=== PATIENT | male | born 1955 | race Caucasian/White ===

== ENCOUNTER 2022-04-09 08:46 | Emergency (ER) | payer OTHER, SELFPAY ==
[2022-04-09 08:52] VITALS: BP 153/81; PULSE 68; RESP 14; TEMP 36.6; O2SAT 99
--- NOTE | 2022-04-09 09:13 | ED.MALEGU ---
HPI - Male Genitourinary General Chief complaint: Urogenital-Male Stated complaint: blood in urine Time Seen by Provider: 04/09/22 09:10 Source: patient, RN notes reviewed and old records reviewed Mode of arrival: ambulatory Limitations: no limitations History of Present Illness HPI Narrative: 66 year old male who [facility] with complaints of noting blood in his urine at 0300 this morning with some clots noted, patient states that he has some irritation with urination, Patient denies any abdominal pain, no suprapubic pressure or pain or any CVA tenderness, Patient does report history of previous kidney stone which he passed on his own about 4 years ago. Patient states that he did drink some beers last night. He denies any fevers, chills nausea or vomiting or any concerns for STD exposure. MD Complaint: other (Blood in urine) Onset (ago): hour(s) (0300) Associated symptoms: Reports blood in urine Related Data Allergies Allergy/AdvReac Type Severity Reaction Status Date / Time No Known Allergies Allergy Verified 04/09/22 09:04 Review of Systems Review of Systems: CONSTITUTIONAL: Denies fever, chills, or sweats. CARDIOVASCULAR: Denies chest pain, palpitations, or edema. RESPIRATORY: Denies cough or dyspnea. GASTROINTESTINAL: Denies abdominal pain, nausea, vomiting, or diarrhea. GENITOURINARY: Reports minimal dysuria,no frequency, urgency. Denies flank pain positive for hematuria. SKIN: Denies rash or itching. MUSCULOSKELETAL: Denies back pain or myalgia. Denies CVA tenderness NEUROLOGIC: Denies headache All systems reviewed & are unremarkable except as noted in HPI and below PMFSH Past Medical History Medical History Calculus of ureter Elevated blood pressure reading Personal history of tobacco use Family History Family History (Updated 08/25/21 @ 12:08 by DEV Alvarez) Mother Cancer Social History Social History (Updated 08/25/21 @ 12:09 by DEV Alvarez) Smoking status: Current every day smoker Tobacco type: cigarettes Alcohol intake: current Alcohol use details: BEER Substance use: never Comments At time of signature, agree with nursing past medical, surgical, social and family history. There is no relevant family history pertinent to the presenting complaint Exam Narrative: GENERAL: Well-appearing, well-nourished, and in no acute distress. HEAD: Normocephalic, atraumatic. NECK: Supple.no lymphadenopathy CHEST: Clear to auscultation. No respiratory distress.SAO2 99% on room air HEART: Regular rate and rhythm. No murmur heard. Normal peripheral pulses. ABDOMEN: Soft, nontender, nondistended, normal active bowel sounds. No CVA tenderness EXTREMITIES: Normal range of motion. No edema. SKIN: Warm, dry, no rash. NEURO: No focal deficits. Alert and oriented x3. Course Course Emergency Course: Patient is aware of diagnosis, understands and agrees to treatment plan.? Anticipatory guidance given.? Patient agrees to follow-up as directed and is aware of reasons to seek care at the emergency department. Portions of this record may have been created with voice recognition software Level of Care: Express Care Visit Vital Signs Vital signs: Vital Signs Temperature 36.6 C 04/09/22 08:52 Pulse Rate 68 04/09/22 08:52 Respiratory Rate 14 04/09/22 08:52 Blood Pressure 153/81 H 04/09/22 08:52 Pulse Oximetry 99 04/09/22 08:52 Oxygen Delivery Room Air 04/09/22 08:52 Temperature 36.6 C 04/09/22 08:52 Pulse Rate 68 04/09/22 08:52 Respiratory Rate 14 04/09/22 08:52 Blood Pressure 153/81 H 04/09/22 08:52 Pulse Oximetry 99 04/09/22 08:52 Oxygen Delivery Room Air 04/09/22 08:52 MDM - Male Genitourinary Differential Diagnosis Differential diagnosis: Likely urinary tract infection, urethritis, prostatitis and other (kidney stone, hematuria) Medical Records Attestation: I reviewed the patient's medical records. Lab Data Attest
== END 2022-04-09 09:35 | disposition home or self-care (01) ==
PROVIDERS: Emergency Provider Registered Nurse; PCP Family Medicine
DX: R31.9 Hematuria, unspecified (principal); F17.210 Nicotine dependence, cigarettes, uncomplicated
CPT/HCPCS: 81003; 87086; 87088; 99213; G0463

== ENCOUNTER 2022-04-13 14:43 | Outpatient (CLI) | payer OTHER, SELFPAY ==
[2022-04-13 19:15] LABS: Kit Draw Collected
== END 2022-04-13 14:44 | disposition home or self-care (01) ==
LOC: ANHGOSHLAB 14:44
PROVIDERS: PCP Family Medicine; Visit Provider Family Medicine
DX: Z00.00 Encounter for general adult medical examination without abnormal findings (principal); E78.5 Hyperlipidemia, unspecified
CPT/HCPCS: 36415

== ENCOUNTER 2022-05-12 10:26 | Outpatient (CLI) | payer OTHER, SELFPAY ==
--- NOTE | ~2022-05-12 | CT_ITS ---
EXAMINATION: CT abdomen pelvis wo/w con DATE: 05/12/2022 11:25 INDICATION: Gross hematuria TECHNIQUE: Computed tomography (CT) of the abdomen and pelvis was performed with and without 130 cc O mnipaque 350 intravenous contrast. The dose-length product was 1158.24 mGy-cm. Automated exposure con trol and iterative reconstruction technique were employed. COMPARISON: KUB dated 05/12/2022. FINDINGS: Mild emphysematous changes. No significant pleural or pericardial effusion. There are calci fied granulomas of the spleen. The liver contains a small subcentimeter hypodensity inferiorly, most likely benign. The pancreas, left adrenal gland and left kidney are unremarkable. There is a small corbett bcentimeter hypodensity of the right kidney, most likely benign cyst. There is a small 1 cm right adr enal nodule, likely benign adenoma. Gallbladder is present. Nonobstructive bowel gas pattern. No sign ificant vascular abnormality. Ureters are normal in course and caliber. Seminal vesicles appear enlar ged and contain cysts bilaterally. Prostate gland is enlarged. No significant lymphadenopathy. There is mild lumbar spondylosis. No acute osseous abnormality. There are fat-containing bilateral inguinal hernias. IMPRESSION: 1. Enlarged prostate gland. Bilateral cystic enlargement of the seminal vesicles. Reviewed, dictated and finalized at location A. 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 Enlarged prostate gland. Bilateral cystic enlargement of the seminal vesicle s.
--- NOTE | ~2022-05-12 | XR_ITS ---
XR abdomen/kub 1V 05/12/2022 10:57 INDICATION: Gross hematuria TECHNIQUE: KUB COMPARISON: None FINDINGS: Bowel gas pattern is normal. There is no evidence of free air, mass, organomegaly, ascites or obstruction. No abnormal calculi are seen. The bones appear intact. IMPRESSION: 1: No acute abdominal abnormality identified. Reviewed, dictated and finalized at location A. 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
[2022-05-12 11:04] LABS: Estimated Glomerular Filt Rate 51
== END 2022-05-12 10:27 | disposition home or self-care (01) ==
PROVIDERS: PCP Family Medicine; Visit Provider Urology
DX: R31.0 Gross hematuria (principal); N40.0 Benign prostatic hyperplasia without lower urinary tract symptoms
CPT/HCPCS: 74018; 74178; Q9967

== ENCOUNTER → 2022-09-12 13:34 | Outpatient (CLI) | payer MEDICARE, SELFPAY ==
--- NOTE | ~2022-09-12 | XR_ITS ---
XR hip LT min 3V w AP pelvis 09/12/2022 13:52 Indication: Left hip pain for 3 months Procedure: 3 views left hip including AP pelvis Comparison: No prior studies for comparison. Findings: Pelvic rings are intact. No fracture, subluxation or dislocation. No significant soft tissu e abnormality. No foreign bodies. Impression: 1: No acute bone or joint abnormality. Reviewed, dictated and finalized at location L. Impression: 1: No acute bone or joint abnormality.
== END ==
PROVIDERS: PCP Family Medicine; Visit Provider Nurse Practitioner Family
DX: M25.552 Pain in left hip (principal); R10.32 Left lower quadrant pain
CPT/HCPCS: 73502

== ENCOUNTER → 2022-09-14 08:11 | Outpatient (CLI) | payer MEDICARE, SELFPAY ==
--- NOTE | ~2022-09-14 | US_ITS ---
US abdomen complete EXAMINATION: US Abdomen Complete INDICATION: Left lower quadrant pain PROCEDURE: Realtime High Resolution abdomen ultrasound. COMPARISON: No prior studies for comparison FINDINGS: Gallbladder within normal limits. No gallstones, pericholecystic fluid, gallbladder wall t hickening or biliary dilatation. Common bile duct measures 3 mm. There is a hyperechoic 8 mm liver mass right hepatic lobe. There is a 6 mm liver cyst. Pancreas withi n normal limits. Pancreatic tail is obscured by bowel gas. Spleen is unremarkeable. There are calci fied granulomas of the spleen. Renal echotexture is within normal limits bilaterally without hydronep hrosis, contour deforming mass or renal stone. Right kidney measures 10.5 cm. Left kidney measures 9. 9 cm. Visualized aspects of the aorta and IVC are within normal limits. Portal vein is patent. No sonograph ic Tirado's sign indicated by the technologist. IMPRESSION: 1: Hyperechoic 8mm liver mass. In the absence of known malignancy this likely represents a benign hem angioma. Consider follow-up ultrasound in 6 months. Reviewed, dictated and finalized at location L. IMPRESSION: 1: Hyperechoic 8mm liver mass. In the absence of known malignancy this likely r epresents a benign hemangioma. Consider follow-up ultrasound in 6 months.
== END ==
PROVIDERS: PCP Family Medicine; Visit Provider Nurse Practitioner Family
DX: R10.32 Left lower quadrant pain (principal)
CPT/HCPCS: 76700

== ENCOUNTER 2022-10-19 02:27 | Day surgery (SDC) | payer MEDICARE, SELFPAY ==
[2022-10-11 11:27] VITALS: BMI 27.6
[2022-10-19 08:27] VITALS: BP 144/92; PULSE 62; RESP 18; TEMP 36.6; O2SAT 100
[2022-10-19] MEDS: LACTATED RINGERS 1,000 ML 150 ML IV CONT (08:35)
--- NOTE | 2022-10-19 09:09 | P.HP_ITS ---
History of Present Illness History of Present Illness Consent: Risks, benefits, and alternatives have been discussed and questions answered. Patient agrees to proceed with procedure. Chief complaint: neoplasia screening Narrative: Gio Ellington is a 67 year old male Presents for screening colonoscopy. Patient reports no specific difficulties. Patient reports his weight appetite bowel movements are normal. He denies diarrhea. He denies abdominal pain. No significant old records accompany the patient. He states his been more than 10 years since last screening exam. Family history is noncontributory. Patient presents today for neoplasia screening colonoscopy. Review of Systems Review of Systems: Review of systems noncontributory. [facility] Past Medical History Medical History Calculus of ureter Elevated blood pressure reading Personal history of tobacco use Family History Family History (System 09/20/22 @ 12:27 by Maciej Raphael) Mother Cancer Social History Social History (System 09/20/22 @ 12:27 by Maciej Raphael) Smoking packs per day: 0.75 Smoking cigarettes per day: 15.0 Years smoked: 20 Smoking pack-years: 15.00 Smoking status: Current every day smoker Tobacco type: cigarettes Alcohol intake: current Drinks per week: 12 Alcohol use details: BEERS Substance use: never Substance use type: does not use Lack of Transportation: No Lack of Food: Never True Current Housing: I Have Housing Concerned About Future Housing: No Difficulty Paying Gas/Electric Bills: No Difficulty Paying for Meds: No Currently Unemployed: No Education: High School Diploma/GED Difficulty w/ Childcare or Family Care: No Living arrangements: alone Spiritual care concerns: No Meds Home Medications and Allergies Home Medications Medication Instructions Recorded Confirmed Type No Home Medications 10/19/22 10/19/22 History Allergies Allergy/AdvReac Type Severity Reaction Status Date / Time No Known Allergies Allergy Verified 10/19/22 08:25 Vital Signs Vital Signs - 24 hr 10/19/22 08:27 Temperature 97.8 F Pulse Rate 62 Respiratory Rate 18 Blood Pressure 144/92 H Pulse Oximetry 100 Oxygen Delivery Room Air Exam Narrative: Physical exam reveals patient to be alert. Vital signs stable. HEENT exam is unremarkable. Patient is anicteric. Lungs are clear to auscultation and percussion. Heart is without murmur or extra sounds. Abdomen bowel sounds are present soft nontender with no organomegaly. Digital external rectal exam is normal. Assessment and Plan Assessment and plan (1) Colon cancer screening: Code(s): Z12.11 - Encounter for screening for malignant neoplasm of colon Status: Acute Assessment and Plan: Patient presents today for screening colonoscopy. He appears to be at average risk for colon polyps.
--- NOTE | 2022-10-19 09:11 | P.PNAN_ITS ---
Anes - Initial Pre Proc Eval Procedure: Operation Date: 10/19/22 10:00 Proposed Procedures p Colonoscopy - Michael Martinez MD Date/Time: 10/19/22 09:11 Surgeon: Michael Martinez MD Pre Op Diagnosis: neoplasia screening Patient Data Age: 67 Gender: M Height: 1.68 m Weight: 76 kg Last Vital Signs Temp 97.8 F 10/19/22 08:27 Pulse 62 10/19/22 08:27 Resp 18 10/19/22 08:27 BP 144/92 H 10/19/22 08:27 Pulse Ox 100 10/19/22 08:27 O2 Del Method Room Air 10/19/22 08:27 Allergies Allergy/AdvReac Type Severity Reaction Status Date / Time No Known Allergies Allergy Verified 10/19/22 08:25 Home Medications Medication Instructions Recorded Confirmed Type No Home Medications 10/19/22 10/19/22 History Patient hx anesthesia problems: none Family hx anesthesia problems: none Results Review: All pre-operative results and documents have been reviewed as part of the pre- operative evaluation. [facility] Past Medical History Medical History Calculus of ureter Elevated blood pressure reading Personal history of tobacco use Family History Family History (System 09/20/22 @ 12:27 by Maciej Raphael) Mother Cancer Social History Social History (System 09/20/22 @ 12:27 by Maciej Raphael) Smoking packs per day: 0.75 Smoking cigarettes per day: 15.0 Years smoked: 20 Smoking pack-years: 15.00 Smoking status: Current every day smoker Tobacco type: cigarettes Alcohol intake: current Drinks per week: 12 Alcohol use details: BEERS Substance use: never Substance use type: does not use Lack of Transportation: No Lack of Food: Never True Current Housing: I Have Housing Concerned About Future Housing: No Difficulty Paying Gas/Electric Bills: No Difficulty Paying for Meds: No Currently Unemployed: No Education: High School Diploma/GED Difficulty w/ Childcare or Family Care: No Living arrangements: alone Spiritual care concerns: No Anes - Eval Final PreProcedure Day of Procedure 10/19/22 09:11 Patient weight: normal Heart: regular rate and rhythm Lungs: clear to auscultation Airway: Mallampati scale class II Neurological: alert and oriented Last oral intake: >/= 8 hours ASA classification: II Emergent: no Anesthetic plan: proceed Anesthesia type and monitoring: general GIVS and standard monitoring Results Review: All pre-operative results and documents have been reviewed as part of the pre- operative evaluation. Informed Consent: The patient's anesthetic plan and its attendant risks and benefits were discussed with the patient/family/POA. Questions were solicited and answers pro vided to the satisfaction of the patient/family/POA.
[2022-10-19 10:19] VITALS: BP 129/77; PULSE 54; RESP 20; O2SAT 100
[2022-10-19 10:29] VITALS: BP 166/94; PULSE 57; RESP 18; O2SAT 100
[2022-10-19 10:39] VITALS: BP 173/105; PULSE 52; RESP 25; O2SAT 100
== END 2022-10-19 10:49 | disposition home or self-care (01) ==
PROVIDERS: PCP Family Medicine; Visit Provider Internal Medicine Gastroenterology
PROC: 0DJD8ZZ Inspection of Lower Intestinal Tract, Via Natural or Artificial Opening Endoscopic (ICD-10-PCS; CPT 45378; principal; 2022-10-19 10:00)
DX: Z12.11 Encounter for screening for malignant neoplasm of colon (principal); D12.2 Benign neoplasm of ascending colon; D12.3 Benign neoplasm of transverse colon; D12.4 Benign neoplasm of descending colon; D12.5 Benign neoplasm of sigmoid colon; K64.8 Other hemorrhoids; D12.8 Benign neoplasm of rectum; F17.210 Nicotine dependence, cigarettes, uncomplicated
CPT/HCPCS: 45385; 88305; J2704; J7120

== ENCOUNTER → 2022-11-24 11:19 | Outpatient (CLI) | payer MEDICARE, SELFPAY ==
--- NOTE | ~2022-11-24 | XR_ITS ---
EXAMINATION: XR lumbar spine 6V w bending DATE: 11/24/2022 11:38 INDICATION: Radiculopathy, lumbar region. TECHNIQUE: 7 views of lumbar spine including flexion and extension views were obtained. COMPARISON: CT abdomen and pelvis 05/12/2022 FINDINGS: Bone alignment is normal. Vertebral body heights are normal. There is mildly decreased disc height at L1-L2 and L3-L4 and moderately decreased disc height at L4-L5. There is multilevel mild fa cet joint osteoarthritis. At L5-S1, there is moderate right and severe left facet joint osteoarthriti s. IMPRESSION: 1. Moderate lumbar spondylosis. Reviewed, dictated and finalized at location E.
== END ==
PROVIDERS: PCP Family Medicine; Visit Provider Family Medicine
DX: M47.26 Other spondylosis with radiculopathy, lumbar region (principal)
CPT/HCPCS: 72114

== ENCOUNTER → 2022-12-01 08:58 | Outpatient (CLI) | payer MEDICARE, SELFPAY ==
--- NOTE | ~2022-12-01 | MR_ITS ---
MRI of the lumbar spine Clinical History: Radiculopathy Technique: Axial T2-weighted images, and sagittal T1-weighted, T2-weighted, and T2 fat-sat images wer e acquired. Findings: There is no fracture or subluxation of the lumbar spine. Vertebral bodies maintain normal h eight and alignment. No suspicious bone or signal abnormality seen. At L1-L2, there is moderate degenerative disc narrowing with minimal disc bulge and mild facet arthro melvin. No central canal stenosis or neural foraminal narrowing. At L2-L3, there is no disc bulge or herniation. There is moderate facet arthropathy. No central canal stenosis or neural foraminal narrowing. L3-L4, there is mild degenerative disc narrowing. There is mild disc bulge with moderate facet arthro melvin. No central canal stenosis. There is moderate right neural foraminal narrowing. Left neural for amen preserved. At L4-L5, there is mild degenerative disc narrowing. There is mild disc bulge and mild to moderate fa cet arthropathy. No central canal stenosis. There is moderate bilateral neural foraminal narrowing. At L5-S1, there is no disc bulge or herniation. There is moderate facet arthropathy. No central canal stenosis or definite neural foraminal narrowing. Paravertebral soft tissues are unremarkable. Impression: [id number] degenerative spondylosis, as above. Reviewed, dictated and finalized at [facility]. Impression: [id number] degenerative spondylosis, as above.
== END ==
PROVIDERS: PCP Family Medicine; Visit Provider Family Medicine
DX: M47.26 Other spondylosis with radiculopathy, lumbar region (principal)
CPT/HCPCS: 72148

== ENCOUNTER 2023-03-28 08:42 | Outpatient (CLI) | payer MEDICARE, SELFPAY ==
--- NOTE | ~2023-03-28 | US_ITS ---
Limited Abdominal Sonogram: Real-time sonographic imaging of the right upper quadrant was performed. Clinical History: Hepatomegaly COMPARISON: 09/14/2022 Findings: The liver appears normal and echotexture, with no evidence of bile duct dilatation. There is a 5 mm echogenic structure in the liver. Main portal vein demonstrates normal direction of flow. T he gallbladder is well distended, and appears normal with no evidence of gallstone or wall thickening . The common bile duct measures 3 mm. The visualized pancreas, aorta, and IVC are unremarkable. Impression: Subcentimeter echogenic structure liver is essentially stable from prior exam, suggestive of small he mangioma. Reviewed, dictated and finalized at location M. TION EXPERT Impression: Subcentimeter echogenic structure liver is essentially stable from prior exam, suggestive of small hemangioma.
== END 2023-03-28 08:43 ==
PROVIDERS: PCP Family Medicine; Visit Provider Nurse Practitioner Family
DX: R16.0 Hepatomegaly, not elsewhere classified (principal)
CPT/HCPCS: 76705

== ENCOUNTER 2024-11-07 13:37 | Outpatient (CLI) | payer MEDICARE, SELFPAY ==
--- OUTSIDE RECORDS SUMMARY | 2024-11-07 13:41 | XMS_ITS | Encounter Summary ---
Author Organization [facility] Address [address] [address] Care Team Providers Care Green Building Design Specialist Name Role Phone Unavailable Primary Care Provider Unavailabl e Encounter Details Date Type Department Care Team (Late st Contact Info) Description 06/04/2019 Lab Requisition [facility] [address] [place] [id number] Placido Spencer MD [address] [place] [address] Social History Tobacco Use Types Packs/Day Years Used Date Smoking Tobacco: Never Assessed Sex and Gender Information Value Date Recorded Sex Assigned at Not on file Legal Sex Male 1:34 PM CDT Gender Identity Not on file Sexual Orientation Not on file documented as of this encounter Plan of Treatment Not on file documented as of this encounter Procedures Procedure Name Priority Date/Time Associated Diagnosis Comments DERMATOPATHOLOGY Routine 06/03/2019 12:0 0 AM CDT documented in this encounter Results * DERMATOPATHOLOGY (06/03/2019 12:00 AM CDT) Case Report Dermatopathology Report Case: [id number] Authorizing Provider: Placido Spencer MD Collected: 06/03/2019 12:00 AM Ordering Location: [facility] Received: 06/04/2019 01:50 PM Pathologist: Leela May MD Specimen: Skin, left frontal parietal scalp 0 5:12 PM CDT DERMATOPATHOLOGY LABORATORY Final Diagnosis Specimen A. 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 0 5:12 PM CDT DERMATOPATHOLOGY LABORATORY Gross Description Specimen A: Received is one formalin filled container labeled with the patient's name and designated left frontal parietal scalp. The specimen consists of a shave biopsy measuring [id number]. Jar 0. 0 5:12 PM CDT DERMATOPATHOLOGY LABORATORY Microscopic Description Specimen A. SKIN, left frontal parietal scalp: There is a cystic epidermal invagination extending into the dermis lined by a columnar epithelium. Papillary projections with a similar lining extend into the lumen. Many plasma cells are present within the infiltrate. There is adjacent hyperkeratosis, papillomatosis, hypergranulosis, and acanthosis. These histological findings can be seen in a verruca vulgaris or a seborrheic keratosis. This case was also reviewed by Dr. Slava Barber who agrees with the diagnosis. 0 5:12 PM CDT DERMATOPATHOLOGY LABORATORY Disclaimer An external and internal positive and negative controls are appropriate for the histochemical, immunohistochemical and immunofluorescence stain(s) in this case (if any), except where stated explicitly. The performance characteristics of the stain(s) cited in this report were developed and its performance characteristic determined by the Dermatopathology Laboratory at [facility], directed by Dr. Slava Barber. These tests need not be, and therefore are not, approved by the [place] Food and Drug Administration. The tests are used for clinical purposes. Billing Codes Specimen Charges Stain Charges 65391 1 0 5:12 PM CDT DERMATOPATHOLOGY LABORATORY Embedded Images 0 5:12 PM CDT DERMATOPATHOLOGY LABORATORY Pathology/Cytolog y TISSUE SPECIMEN FROM SKIN / Unknown 06/03/2019 06/04/2019 1:50 PM CDT Placido Spencer MD LAB - PATHOLOGY/CYTOLOGY ORD ERABLES Final Result DERMATOPATHOLOGY LABORATORY [facility] - Department of Dermatology [address] [place] [address], [address] [place] [address], [facility] [phone] documented in this encounter Visit Diagnoses Not on filedocumented in this encounter
--- OUTSIDE RECORDS SUMMARY | 2024-11-07 13:41 | XMS_ITS | Clinical Summary ---
Author Organization [facility] Address [address] [place] [address] Care Team Providers Care Night Clerk Name Role Phone Unavailable Primary Care Provider Unavailabl e Source Comments [facility],non-owned Affiliates and Associated Physician Practices is amultiple site organization consisting of ambulatory clinics and hospital sitesin [place], [place], [place] and [place]. This disclosure is being madepursuant to the Care Everywhere program and may not contain all information available regarding this patient. Last updated 17.[facility] Social History Tobacco Use Types Packs/Day Years Used Date Smoking Tobacco: Never Assessed Sex and Gender Information Value Date Recorded Sex Assigned at Not on file Legal Sex Male 1:34 PM CDT Gender Identity Not on file Sexual Orientation Not on file Plan of Treatment Health Maintenance Due Date Last Done Comments COLOGUARD (AGES 45-75) - COL ON CA SCREENING 1957 COLON MONITORING 1957 COLONOSCOPY - COLON CA SCREENING 1957 CT COLONOGRAPHY - COLON CA SCREENING 1957 Colorectal Cancer Screening 1957 FIT - COLON CA SCREENING 1957 FLEX SIG - COLON CA SCREENING 1957 LIPID TESTING 1957 MEDICARE AWV 12 MONTHS 1957 HEPATITIS C SCREENING 07/23/1975 DTAP/TDAP/TD VACCINES (1 - Tdap) 1976 PNEUMOCOCCAL VACCINE 50+ (1 of 1 - PCV) 07/28/2007 ZOSTER VACCINE (1 of 2) 07/28/2007 COVID-19 VACCINE ( - 2023-2 5 season) 2023 DEPRESSION SCREENING 03/26/2024 INFLUENZA VACCINE (#1) 2024 Respiratory Syncytial Virus (RSV) Vaccine Pt: or over 60 yrs (1 - 1-dose 75+ series) 2032 HEPATITIS B VACCINE Aged Out No longe r eligible based on patient's age to complete this topic HIB VACCINE Aged Out No longer eligi ble based on patient's age to complete this topic HPV VACCINE Aged Out No longer eligi ble based on patient's age to complete this topic MENINGOCOCCAL (Group B) VACC INE SHARED DECISION-MAKING Aged Out No longer eligibl e based on patient's age to complete this topic MENINGOCOCCAL GROUPS A/C/Y/W VACCINE Aged Out No longer eligible b ased on patient's age to complete this topic Insurance [facility] Address: [address] [place] [address] MEDICARE
[2024-11-07 18:36] LABS: Hematocrit 47.7 % (42.0-52.0); Hemoglobin 15.6 g/dL (14.0-18.0); Mean Corpuscular HGB Conc 32.7 g/dl (32-36); Mean Corpuscular Hemoglobin 31.3 pg (26-34); Mean Corpuscular Volume 95.8 fl (80-100); Platelet Count Result 228 k/mm3 (150-375); Red Blood Count 4.98 M/mm3 (4.6-6.20); White Blood Count 10.5 K/mm3 (4.5-10.0)
[2024-11-07 18:59] LABS: Alanine Aminotransferase 19 U/L (6-50); Albumin Level 4.1 g/dL (3.5-5.1); Alkaline Phosphatase 67 U/L (38-126); Anion Gap 7 mmol/L (4-12); Aspartate Amino Transferase 35 U/L (17-59); Bilirubin,Total 0.9 mg/dL (0.2-1.3); Blood Urea Nitrogen 13 mg/dL (9-20); Calcium 9.3 mg/dL (8.4-10.2); Carbon Dioxide 24 mmol/L (22-30); Chloride 110 mmol/L (98-107); Estimated Glomerular Filt Rate 51; Glucose 89 mg/dL (65-110); Potassium 4.2 mmol/L (3.4-5.0); Sodium 141 mmol/L (137-145); Total Protein 6.9 g/dL (6.3-8.2)
[2024-11-07 19:25] LABS: Prostate Specific Antigen 3.5 ng/mL (< OR = 4.0)
== END 2024-11-07 13:38 | disposition home or self-care (01) ==
LOC: ANHGOSHLAB 13:37
PROVIDERS: PCP Family Medicine; Visit Provider Family Medicine
DX: R03.0 Elevated blood-pressure reading, without diagnosis of hypertension (principal); Z12.5 Encounter for screening for malignant neoplasm of prostate
CPT/HCPCS: 36415; 80053; 84153; 85027; G0103